=== PATIENT | female | born 1945 ===

== ENCOUNTER → 2022-12-12 10:23 | Outpatient (CLI) | payer MEDICARE, SELFPAY ==
--- NOTE | ~2022-12-12 | MR_ITS ---
MRI of the brain Clinical History: Headache Technique: Axial and sagittal T1-weighted images were acquired. These were followed by axial T2-weigh elvia, diffusion weighted, gradient, and FLAIR images. Findings: There is no acute infarct, intracranial hemorrhage, or mass lesion. There is mild chronic m icrovascular ischemic change in the periventricular white matter bilaterally. Ventricles and subarachnoid spaces are unremarkable. Orbits are unremarkable. Paranasal sinuses and m astoid air cells are clear. Major intracranial flow voids are intact. Sagittal midline structures are intact. IMPRESSION: Mild chronic microvascular ischemic changes, otherwise unremarkable exam. Reviewed, dictated and finalized at location [facility]
== END ==
DX: R51.9 Headache, unspecified (principal)
CPT/HCPCS: 70551

== ENCOUNTER 2023-04-16 12:48 | Outpatient (CLI) | payer OTHER, SELFPAY ==
--- NOTE | ~2023-04-16 | MR_ITS ---
MRI of the right ankle Clinical history: Pain Technique: Coronal proton-density and proton-density fat-sat images, axial proton-density and proton- density fat-sat images, and sagittal proton-density and proton-density fat-sat images were acquired. Findings: Syndesmotic ligaments are intact. There is poor definition with increased signal and thicke chastity of the anterior talofibular joint, compatible with probable acute severe sprain and/or tear. Rob caneofibular and posterior talofibular ligaments are intact. Deltoid ligament is intact. Medial flexor tendons, anterior extensor tendons, and Achilles tendon are intact. There is longitudin al split tear of the peroneus brevis tendon at and just distal to the tip of the lateral malleolus. P eroneus longus tendon is intact. No osteochondral lesion of the talar dome. Bone marrow signals are essentially unremarkable. No signi ficant degenerative joint disease evident. No significant joint effusion. Plantar fascia is intact. There is minimal subcutaneous soft tissue edema about the ankle. Impression: Probable severe sprain versus tear of the anterior talofibular ligament. Longitudinal split tear of the peroneus brevis tendon, as detailed above. Reviewed, dictated and finalized at location . [facility] Impression: Probable severe sprain versus tear of the anterior talofibular ligament. Longitudinal split tear of the peroneus brevis tendon, as detailed above.
== END 2023-04-16 12:49 ==
LOC: MICIMG 12:49
PROVIDERS: PCP Physician Assistant; Visit Provider Physician Assistant
DX: M25.571 Pain in right ankle and joints of right foot (principal)
CPT/HCPCS: 73721